=== PATIENT | male | born 1960 | race Caucasian/White ===

== ENCOUNTER 2019-07-28 08:28 | Outpatient (CLI) | payer SELFPAY | END 2019-07-28 08:48 | PROVIDERS: PCP Nurse Practitioner Adult Health; Visit Provider Internal Medicine Cardiovascular Disease | DX: I25.10 Atherosclerotic heart disease of native coronary artery without angina pectoris (principal); I25.2 Old myocardial infarction; I10 Essential (primary) hypertension; E78.2 Mixed hyperlipidemia | CPT/HCPCS: 93005; 93010 ==